=== PATIENT | female | born 1990 | race Caucasian/White ===

== ENCOUNTER 2016-09-22 09:36 | Inpatient (IN) | payer OTHER ==
[2016-09-22] MEDS ORDERED: DEXTROSE 5%-LACTATED RINGERS 1,000 ML IV PRN (10:32)
[2016-09-22] MEDS ORDERED: OXYTOCIN/DEXTROSE 5%-WATER 30 UNITS/500 ML BAG IV ONE ×2 (10:32→19:06)
[2016-09-22] MEDS ORDERED: ONDANSETRON HCL/PF 2 MG/ML VIAL IV PRN (10:32)
[2016-09-22] MEDS ORDERED: LIDOCAINE HCL 50 ML VIAL PERI PRN (10:32)
[2016-09-22] MEDS: RINGERS SOLUTION,LACTATED 1,000 ML IV ONE ×2 (10:45→16:37)
[2016-09-22] MEDS ORDERED: BUPIVACAINE HCL/PF 30 ML VIAL EP ONE (14:33)
[2016-09-22] MEDS ORDERED: NALOXONE HCL 1 MG/1 ML SYRG IV PRN (14:33)
[2016-09-22] MEDS ORDERED: BUPIVACAINE HCL/0.9 % NACL/PF 250 ML EP PRN (14:33)
--- NOTE | 2016-09-22 15:32 | OR ---
Anesthesia Procedure Note - Anesthesia Procedure Note Date of Service: 09/22/16 Narrative: Vital Signs - Last Taken Temp 36.8 C 09/22/16 14:36 Pulse 74 09/22/16 14:36 Resp 20 09/22/16 14:36 BP 93/55 09/22/16 14:36 Pulse Ox 98 09/22/16 14:36 09/22/16 15:31 ANESTHESIA PROCEDURE NOTE Date of Procedure: 09/22/2016 Time of procedure: 1510. Performed by: Morris Buckley CRNA Oracle Developer: None. Preprocedure diagnosis: Active labor. Post procedure diagnosis: Same. Procedure: Insertion of labor epidural. Indications: The patient is a 26 -year-old female in active labor requesting labor epidural for pain management. Findings: See below. Details of the procedure: The patient was placed in a sitting position. DuraPrep as well as Betadine swabs 3 was applied to the patient's back. Patient was then draped in a sterile fashion. Lidocaine 1% was infiltrated to the skin and subcutaneous tissues at the level of the L3-L4 interspace. The epidural space was identified using a 18-gauge Tuohy needle with loss-of- resistance technique. Epidural catheter was inserted to a depth of 10 centimeters at skin. Negative test dose was elicited using 3 mL of 1.5% preservative-free lidocaine plus epinephrine 1 200,000. The epidural catheter was then taped and secured in place. A loading dose of 8 mL of 0.25% preservative-free bupivacaine was administered to the epidural catheter after negative aspiration for blood and CSF. EBL: Minimal. Fluids: N/A. Specimen: N/A. Post procedure condition: The patient tolerated the procedure well. No complications were noted. Thank you for this consultation. Morris Buckley CRNA
--- NOTE | 2016-09-22 17:41 | PN ---
Progess Note - Interim Narrative: 09/22/16 17:39 Patient still uncomfortable despite epidural Vital signs stable. Pitocin at 9 mu/min. FHT: 120 baseline, reassuring Contractions q 2-3 min Cervix: 5/90/0, AROM of floor bag-clear Impression: Intrauterine at 39-1/7 weeks in labor Plan: Continue present plan
[2016-09-22] MEDS ORDERED: GLYCERIN/WITCH HAZEL LEAF 40 APPL BOX TP PRN (19:06)
[2016-09-22] MEDS ORDERED: BISACODYL 10 MG SUPP.RECT RC PRN (19:06)
[2016-09-22] MEDS ORDERED: BENZOCAINE/MENTHOL 81 SPRAY CAN TP PRN (19:06)
[2016-09-22] MEDS ORDERED: SENNOSIDES 8.6 MG TABLET PO PRN (19:06)
[2016-09-22] MEDS ORDERED: HYDROCORTISONE 30 APPL TUBE TP PRN (19:06)
[2016-09-22] MEDS ORDERED: oxyCODONE HCL/ACETAMINOPHEN 1 TAB TABLET PO PRN (19:06)
--- NOTE | 2016-09-22 20:42 | OR ---
Operative Report - Dictated Report Narrative: Indication: Recurrent late decelerations with prolonged deceleration Pre Procedure Patient was counseled to the risk, benefits, and alternatives to operative vaginal delivery. All questions were answered. Patient consented to proceed with operative vaginal delivery. heart rate interpretation: Category 3, EFW 4100 g, station +2, Position of head ELIER, Anesthesia: epidural Cervix was completely dilated and effaced, maternal- size appropriate for application, bladder was emptied Procedure Dotson/Luikart forceps easily applied, hinge/lock approximated without difficulty, 2 applications with 1 pull, advancement in station with pull, degree of rotation 0-45, forceps removed with Post Procedure Viable male with Apgars 8 and 8 weighing 4243 g at 1845 on 09/22/2016 with tight nuchal cord 1. Cord clamping delayed 1 minute. Terminal meconium. Cord gases not collected, Placenta membrane stained with meconium-delivered spontaneously, EBL less than 50 mL, no injury, no shoulder dystocia Lacerations: none History for Definition: * The number of deliveries resulting in a live the patient experienced prior to current hospitalization * The previous delivery of live twins or any live multiple gestation is considered one live event. *If primagravida or nulliparous is documented select zero for the number of previous live births. Live Events: 4
[2016-09-22] MEDS: DOCUSATE SODIUM 100 MG CAPSULE PO SCH (20:56)
[2016-09-22] MEDS: IBUPROFEN 800 MG TABLET PO PRN (20:56)
[2016-09-22] MEDS: oxyCODONE HCL/ACETAMINOPHEN 1 TAB TABLET PO PRN (20:56)
[2016-09-23] MEDS: oxyCODONE HCL/ACETAMINOPHEN 1 TAB TABLET PO PRN ×5 (00:25→18:49)
[2016-09-23] MEDS: IBUPROFEN 800 MG TABLET PO PRN ×3 (03:06→18:49)
[2016-09-23] MEDS: DOCUSATE SODIUM 100 MG CAPSULE PO SCH ×2 (09:19→20:38)
--- NOTE | 2016-09-23 11:05 | PN ---
Subjective - Date and Time Seen Date: 09/23/16 Time: 11:05 Objective - Vitals Vitals: Last Vital Signs Temp 36.7 C 09/23/16 09:21 Pulse 67 09/23/16 09:21 Resp 18 09/23/16 09:21 BP 111/64 09/23/16 09:21 Pulse Ox 95 09/23/16 09:21 Patient denies complaints. Lochia wnl Abdomen - soft, nontender Uterus - firm, at umbilicus - 1 No calf tenderness Impression: day #1 - s/p spontaneous vaginal delivery. Plan: Continue routine care Cauti Physician Documentation - Urinary Catheter Management Uretheral (Shepard) Date of Insertion: 09/22/16 Time of Insertion: 15:50
[2016-09-24] MEDS: IBUPROFEN 800 MG TABLET PO PRN ×2 (01:14→07:31)
[2016-09-24] MEDS: oxyCODONE HCL/ACETAMINOPHEN 1 TAB TABLET PO PRN ×4 (01:14→12:35)
--- NOTE | 2016-09-24 06:48 | PN ---
Subjective - Date and Time Seen Date: 09/24/16 Time: 06:47 Objective - Vitals Vitals: Last Vital Signs Temp 36.4 C L 09/24/16 01:19 Pulse 59 L 09/24/16 01:19 Resp 16 09/24/16 01:19 BP 132/84 09/24/16 01:19 Pulse Ox 97 09/24/16 01:19 Patient denies complaints. Lochia wnl Abdomen - soft, nontender Uterus - firm, at umbilicus - 2 No calf tenderness Impression: day #2 - s/p spontaneous vaginal delivery. Desires permanent sterilization Plan: Routine discharge instructions. Follow-up in the office in 2-3 weeks to be scheduled for laparoscopic bilateral salpingectomy. Cauti Physician Documentation - Urinary Catheter Management Uretheral (Shepard) Date of Insertion: 09/22/16 Time of Insertion: 15:50
[2016-09-24] MEDS: DOCUSATE SODIUM 100 MG CAPSULE PO SCH ×2 (07:31→09:00)
[2016-09-24 09:00] VITALS: BP 136/85
== END 2016-09-24 14:20 | disposition home or self-care (01) | DRG 775 ==
LOC: OB 09:36
PROVIDERS: ADMIT Obstetrics & Gynecology; ATTEND Obstetrics & Gynecology
PROC: 10D07Z3 Extraction of Products of Conception, Low Forceps, Via Natural or Artificial Opening (ICD-10-PCS; principal; 2016-09-22)
PROC: 10907ZC Drainage of Amniotic Fluid, Therapeutic from Products of Conception, Via Natural or Artificial Opening (ICD-10-PCS; 2016-09-22)
PROC: 4A1HXCZ Monitoring of Products of Conception, Cardiac Rate, External Approach (ICD-10-PCS; 2016-09-22)
PROC: 3E0S3CZ (ICD-10-PCS; 2016-09-22)
DX: O69.1XX0 Labor and delivery complicated by cord around neck, with compression, not applicable or unspecified (principal); O76 Abnormality in fetal heart rate and rhythm complicating labor and delivery; Z3A.39 39 weeks gestation of pregnancy; Z37.0 Single live birth

== ENCOUNTER 2016-10-28 10:46 | Day surgery (SDC) | payer OTHER ==
[~2016-10-28 10:46] MED LIST: RINGERS SOLUTION,LACTATED 1,000 ML IV PRN
[2016-10-28] MEDS ORDERED: RINGERS SOLUTION,LACTATED 1,000 ML IV ONE ×2 (11:11→12:20)
[2016-10-28] MEDS ORDERED: LIDOCAINE HCL/EPINEPHRINE 50 ML VIAL IJ ONE (11:55)
--- NOTE | 2016-10-28 12:57 | OR ---
Operative Report - Dictated Report Narrative: DATE OF PROCEDURE: 10/28/2016 INDICATION: 26 year old female desires permanent sterilization by removal of both fallopian tubes PREOPERATIVE DIAGNOSIS: Multiparity, desires permanent sterilization POSTOPERATIVE DIAGNOSIS: Multiparity, desires permanent sterilization OPERATION: Laparoscopic bilateral salpingectomy SURGEON: Tomer Blanc D.O. REGION MANAGER: Felipe ANESTHESIA: General ESTIMATED BLOOD LOSS: Minimal FLUID REPLACEMENT: 950 mL of crystalloid URINE OUTPUT: Not measured FINDINGS: Normal uterus, tubes, and ovaries. SPECIMEN(S): Fallopian tubes DRAINS: none TECHNIQUE: The patient was taken to the operating room and placed in dorsal lithotomy position after adequate general anesthesia was obtained. The anterior lip of the cervix was grasped with a long Allis clamp and a uterine manipulator was inserted into the cervical canal and attached to the Allis clamps as a means to manipulate the uterus. Bladder was drained prior to patient entering the OR. Gloves were changed and attention was turned to the abdomen where the umbilicus and suprapubic region were injected with a 1% lidocaine epinephrine was solution. A scalpel was used to score the skin and a 5 mm non-bladed trocar was inserted via direct technique under direct visualization. Pneumoperitoneum was created with CO2 gas. A 5 mm non-bladed trocar was inserted suprapubically and in the left lower quadrant in a similar fashion. Through these 3 ports the surgery was carried out with findings as noted above. The right fallopian tube was identified and followed out to the fimbriated end. The fallopian tube was coagulated with the Kleppinger's approximately 2 cm from the cornual region and along the mesosalpinx. The tube was then excised with laparoscopic scissors and removed through the 5 mm port. The exact same was done on the patient's left side. The CO2 gas was removed from the abdominal cavity. Trochars were removed under direct visualization. The skin of all incisions was closed with 4-0 Monocryl and Dermabond. Instruments were removed from the cervix and vagina. Sponge, lap, instrument, and needle count were correct x 2. DISPOSITION: The patient was awakened and transferred to post anesthesia care unit in good condition.
[2016-10-28] MEDS ORDERED: RINGERS SOLUTION,LACTATED 1,000 ML IV PRN (13:43)
[2016-10-28] MEDS ORDERED: oxyCODONE HCL/ACETAMINOPHEN 1 TAB TABLET PO PRN (13:44)
[2016-10-28] MEDS ORDERED: IBUPROFEN 800 MG TABLET ONE (14:36)
[2016-10-28] MEDS ORDERED: IBUPROFEN 800 MG TABLET PO PRN (14:46)
[2016-10-28 15:27] VITALS: BP 124/68
== END 2016-10-28 10:47 | disposition home or self-care (01) ==
LOC: AMB 10:46
PROVIDERS: ATTEND Obstetrics & Gynecology
PROC: 0UT74ZZ Resection of Bilateral Fallopian Tubes, Percutaneous Endoscopic Approach (ICD-10-PCS; principal; 2016-10-28 13:45)
DX: Z30.2 Encounter for sterilization (principal); F53 Mental and behavioral disorders associated with the puerperium, not elsewhere classified; J45.909 Unspecified asthma, uncomplicated; F41.9 Anxiety disorder, unspecified; D64.9 Anemia, unspecified; Z87.891 Personal history of nicotine dependence; Z68.25 Body mass index [BMI] 25.0-25.9, adult